=== PATIENT | male | born 1950 | race Caucasian/White ===

== ENCOUNTER 2022-08-03 10:13 | Day surgery (SDC) | payer BC, SELFPAY ==
[2022-07-29 10:07] VITALS: BMI 24.2
--- NOTE | 2022-07-31 08:15 | MHC.SHP ---
Pre-Procedural Eval Section A Date of Service: 07/31/22 The patient is an INPATIENT: No Changes since office visit: No Cold of Flu in the past 2 weeks, No New Medical Problems, No Changes in Medication and No Patient answered all questions The History & Physical has been completed within 30 days and I have reviewed it.: Yes Section B Chief Complaint: Age-related nuclear cataract, left eye Allergies: Allergies Allergy/AdvReac Type Severity Reaction Status Date / Time codeine Allergy Intermediate Nausea and Verified 07/29/22 10:01 Vomiting Plan Diagnosis/Plan: Unchanged I have reviewed the history and physical and performed a pertinent physical examination on my patient. No changes have occurred unless specified. Time Spent With Patient Time: Total time managing care of this patient today ____ minutes.
--- NOTE | 2022-07-31 09:25 | HO.ANESPROP2 ---
HPI - Anesthesia Eval Consult details Narrative: 72yo M for Left Cataract Extraction IOL Insertion PCP cleared No previous cataract PMFSH Past Medical History Medical History (Updated 07/29/22 @ 10:01 by Sheree Rivera RN) Arthritis Elevated cholesterol Essential tremor Renal calculi Surgical History Surgical History (Updated 07/29/22 @ 10:01 by Sheree Rivera RN) H/O colonoscopy Hx of tonsillectomy Social History Social History Are you a primary progressive care unit registered nurse to a significant other at home: No Do you presently have visiting nurse or other home services: No Patient Tobacco Use Status: Former Tobacco user Quit Date: 1986 Tobacco use type: Cigarette Use of substances other than those prescribed or required for medical reasons: No Have you been hit, kicked, punched, or otherwise hurt by someone within the past year? If so, by whom?: No Are you DNR?: No Advance Directives: No ( is primary contact) Advance Directives Information Provided: Yes Advance Directives on File: No Recently lost weight without trying: No Eating poorly because of decreased appetite: No Nutrition Risks: No Nutritional Risk Poor oral hygiene: No Meds Allergies Allergy/AdvReac Type Severity Reaction Status Date / Time codeine Allergy Intermediate Nausea and Verified 07/29/22 10:01 Vomiting Home Medications Medication Instructions Recorded Confirmed Last Taken Type ibuprofen 400 mg tablet 800 mg PO Q6H PRN Pain 07/29/22 07/29/22 Unknown History niacin 1,000 mg tablet,extended 1,000 mg PO BEDTIME 07/29/22 07/29/22 Unknown History release 24 hr pseudoephedrine HCl 60 mg tablet 120 mg PO Q4-6H PRN Congestion 07/29/22 07/29/22 Unknown History topiramate 25 mg tablet 25 mg PO BEDTIME 07/29/22 07/29/22 Unknown History Exam Exam Date and Time: July 31, 2022 0925 Height,Weight and Vital Signs: Height 5 ft 9 in Weight 74.389 kg Assessment and Plan Assessment Anesthesia Assessment: Chart Reviewed
[2022-08-03 10:55] VITALS: BP 187/104; PULSE 64; RESP 16; TEMP 36.7; O2SAT 99
[2022-08-03] MEDS: Lactated Ringers 500 ML 50 ML IV (10:58)
[2022-08-03] MEDS: Tropicamide 1 % Ophth Sol 3 ML BTL 1 DROP EYE-LEFT ×3 (10:58→11:06)
[2022-08-03] MEDS: Tetracaine HCl/PF 0.5% Oph Sol 4 ML DROPS 1 DROP EYE-LEFT (10:58)
[2022-08-03] MEDS: Cyclopentolate 1 % Ophth Sol 2 ML DRPBTL 1 DROP EYE-LEFT ×3 (11:00→11:07)
[2022-08-03] MEDS: Ketorolac Tromethamine 0.5% Op 5 ML DROPS 1 DROP EYE-LEFT ×3 (11:01→11:07)
[2022-08-03] MEDS: Phenylephrine HCL 2.5% Oph SoL 2 ML BOTTLE 1 DROP EYE-LEFT ×3 (11:02→11:08)
--- NOTE | 2022-08-03 12:40 | HO.PNOPHT ---
Ophthalmology Procedure Procedure Date of Service: 08/03/22 Ophthalmology Viscoelastic: Healon Duet Dual Pack Pro Ophthalmology Lenses: TECNIS ZXR00 (16.5) Procedure Notes: PREOPERATIVE DIAGNOSIS: Decreased visual acuity left eye secondary to cataract POSTOPERATIVE DIAGNOSIS: Same PROCEDURE: Left cataract extraction with multifocal intraocular lens insertion SURGEON: Rafael Hurd M.D. ANESTHESIA: Topical/MAC ESTIMATED BLOOD LOSS: None COMPLICATIONS: None After obtaining informed consent, the patient was brought to the operation room suite and placed in the supine position. After adequate sedation per anesthesia, topical drops of Tetracaine were given to the left eye. The eye was then prepped and draped in the usual sterile fashion. The operating room microscope was then positioned over the operative eye and a lid speculum placed. A paracentesis was created. Viscoelastic was then instilled into the anterior chamber. A three plane incision was then created temporally, utilizing a 2.85 mm keratome. Capsulotomy forceps were then utilized to create a circular tear capsulotomy. Hydrodissection and hydrodelineation were carried out until adequate mobilization of the nucleus occurred. Phacoemulsification was then utilized to remove the dense central nucleus followed by removal of the cortical material utilizing the automated aspiration irrigation unit. Viscoelastic was instilled into the posterior capsular bag followed by placement of a multifocal posterior chamber intraocular lens without difficulty. The residual Viscoelastic was then removed utilizing the automated IA machine. The wound was check and found to be watertight. The patient tolerated the procedure well and the lid speculum was removed. Intracameral injection of Vigamox 0.1 mL followed by a subtenon injection of Kenalog-40 0.2 mL were administered. The patient will be seen in the a.m.
[2022-08-03 13:05] VITALS: BP 152/83; PULSE 58; RESP 18; TEMP 36.8; O2SAT 97
== END 2022-08-03 13:17 | disposition home or self-care (01) ==
PROVIDERS: PCP Internal Medicine; Visit Provider Ophthalmology
PROC: (CPT 66984; principal; 2022-08-03 13:10)
DX: H25.12 Age-related nuclear cataract, left eye (principal); H52.4 Presbyopia; Z83.511 Family history of glaucoma; H18.413 Arcus senilis, bilateral; H35.09 Other intraretinal microvascular abnormalities; G25.0 Essential tremor; E78.00 Pure hypercholesterolemia, unspecified; Z79.899 Other long term (current) drug therapy; Z87.891 Personal history of nicotine dependence
CPT/HCPCS: 66984; J2250; J3010; J3301; V2788

== ENCOUNTER 2022-08-17 06:19 | Day surgery (SDC) | payer MEDICARE, SELFPAY ==
[2022-07-29 10:09] VITALS: BMI 24.2
--- NOTE | 2022-08-13 13:12 | MHC.SHP ---
Pre-Procedural Eval Section A Date of Service: 08/13/22 The patient is an INPATIENT: No Changes since office visit: No Cold of Flu in the past 2 weeks, No New Medical Problems, No Changes in Medication and No Patient answered all questions The History & Physical has been completed within 30 days and I have reviewed it.: Yes Section B Chief Complaint: Age-related nuclear cataract, right eye Allergies: Allergies Allergy/AdvReac Type Severity Reaction Status Date / Time codeine Allergy Intermediate Nausea and Verified 07/29/22 10:01 Vomiting Plan Diagnosis/Plan: Unchanged I have reviewed the history and physical and performed a pertinent physical examination on my patient. No changes have occurred unless specified. Time Spent With Patient Time: Total time managing care of this patient today ____ minutes.
--- NOTE | 2022-08-14 09:28 | HO.ANESPROP2 ---
Documented by User: Haley Noriega NP 08/14/22 09:30 HPI - Anesthesia Eval Consult details Narrative: 72yo M for Right Cataract Multifocal with IOL Insertion PCP cleared Left eye 08/03/22 with Fent 50, Midaz 2 PMFSH Past Medical History Medical History Arthritis Elevated cholesterol Essential tremor Renal calculi Surgical History Surgical History H/O colonoscopy Hx of tonsillectomy Social History Social History Are you a primary healthcare recruiter to a significant other at home: No Do you presently have visiting nurse or other home services: No Patient Tobacco Use Status: Former Tobacco user Quit Date: 1986 Tobacco use type: Cigarette Use of substances other than those prescribed or required for medical reasons: No Have you been hit, kicked, punched, or otherwise hurt by someone within the past year? If so, by whom?: No Are you DNR?: No Advance Directives: No ( is primary contact) Advance Directives Information Provided: Yes Advance Directives on File: No Recently lost weight without trying: No Eating poorly because of decreased appetite: No Nutrition Risks: No Nutritional Risk Poor oral hygiene: No Meds Allergies Allergy/AdvReac Type Severity Reaction Status Date / Time codeine Allergy Intermediate Nausea and Verified 08/17/22 06:26 Vomiting Home Medications Medication Instructions Recorded Confirmed Last Taken Type ibuprofen 400 mg tablet 800 mg PO Q6H PRN Pain 07/29/22 07/29/22 Unknown History niacin 1,000 mg tablet,extended 1,000 mg PO BEDTIME 07/29/22 07/29/22 Unknown History release 24 hr pseudoephedrine HCl 60 mg tablet 120 mg PO Q4-6H PRN Congestion 07/29/22 07/29/22 Unknown History topiramate 25 mg tablet 25 mg PO BEDTIME 07/29/22 07/29/22 Unknown History Exam Exam Date and Time: August 14, [id number] Height,Weight and Vital Signs: Height 5 ft 9 in Weight 74.389 kg Assessment and Plan Assessment Anesthesia Assessment: Chart Reviewed Documented by User: Sushant Aragon MD 08/17/22 07:45 [facility] Past Medical History Medical History Arthritis Elevated cholesterol Essential tremor Renal calculi Family History Family history of problems with anesthesia: No Surgical History Surgical History H/O colonoscopy Hx of tonsillectomy History of Problems with Anesthesia: No Social History Social History Are you a primary healthcare recruiter to a significant other at home: No Do you presently have visiting nurse or other home services: No Patient Tobacco Use Status: Former Tobacco user Quit Date: 1986 Tobacco use type: Cigarette Use of substances other than those prescribed or required for medical reasons: No Have you been hit, kicked, punched, or otherwise hurt by someone within the past year? If so, by whom?: No Are you DNR?: No Advance Directives: No ( is primary contact) Advance Directives Information Provided: Yes Advance Directives on File: No Recently lost weight without trying: No Eating poorly because of decreased appetite: No Nutrition Risks: No Nutritional Risk Poor oral hygiene: No Meds Allergies Allergy/AdvReac Type Severity Reaction Status Date / Time codeine Allergy Intermediate Nausea and Verified 08/17/22 06:26 Vomiting Home Medications Medication Instructions Recorded Confirmed Last Taken Type ibuprofen 400 mg tablet 800 mg PO Q6H PRN Pain 07/29/22 07/29/22 Unknown History niacin 1,000 mg tablet,extended 1,000 mg PO BEDTIME 07/29/22 07/29/22 Unknown History release 24 hr pseudoephedrine HCl 60 mg tablet 120 mg PO Q4-6H PRN Congestion 07/29/22 07/29/22 Unknown History topiramate 25 mg tablet 25 mg PO BEDTIME 07/29/22 07/29/22 Unknown History Exam Airway Mallampati Class: II TM Dist: >3cm Neck ROM: Full Loose/Missing/Broken Teeth: Yes Heart: [id number] Lungs: cta b/l Assessment and Plan Assessment Anesthesia Assessment: Anesthesia Plan Discussed Final Anesthetic Review Family History of Problems with Anesthesia: No History of Problems with Anesthesia: No NPO: Yes ASA Class: II Final Preanesthetic Review: No Changes in Pt Med Stat, Meds/Allgs Chart Reviewed, Consent Obtained/Reviewed and Anes Risks/Benef Reviewed Patient Risk: Low Procedure Risk: Low Assessment/Block/Sedation in SS: Assess/Block/Sedation-SS Anesthetic Plan Anesthetic Plan: MAC: and Agree w/ Assess. and Plan Disposition: Standard PACU
[2022-08-17 06:30] VITALS: BP 151/82; PULSE 58; RESP 16; TEMP 37; O2SAT 96
[2022-08-17] MEDS: Tetracaine HCl/PF 0.5% Oph Sol 4 ML DROPS 1 DROP EYE-RIGHT (06:35)
[2022-08-17] MEDS: Cyclopentolate 1 % Ophth Sol 2 ML DRPBTL 1 DROP EYE-RIGHT ×3 (06:38→06:48)
[2022-08-17] MEDS: Tropicamide 1 % Ophth Sol 3 ML BTL 1 DROP EYE-RIGHT ×3 (06:39→06:49)
[2022-08-17] MEDS: Ketorolac Tromethamine 0.5% Op 5 ML DROPS 1 DROP EYE-RIGHT ×3 (06:41→06:50)
[2022-08-17] MEDS: Phenylephrine HCL 2.5% Oph SoL 2 ML BOTTLE 1 DROP EYE-RIGHT ×3 (06:42→06:51)
[2022-08-17] MEDS: Lactated Ringers 500 ML 50 ML IV (06:49)
[2022-08-17 07:58] VITALS: BP 132/64; PULSE 52; RESP 18; TEMP 36.6; O2SAT 98
--- NOTE | 2022-08-17 08:00 | P.PCNO_ITS ---
Ophthalmology Procedure Procedure Date of Service: 08/17/22 Ophthalmology Viscoelastic: Healon Duet Dual Pack Pro Ophthalmology Lenses: TECNIS ZXR00 (15.5) Procedure Notes: PREOPERATIVE DIAGNOSIS: Decreased visual acuity right eye secondary to cataract POSTOPERATIVE DIAGNOSIS: Same PROCEDURE: Right cataract extraction with multifocal intraocular lens insertion SURGEON: Rafael Hurd M.D. ANESTHESIA: Topical/MAC ESTIMATED BLOOD LOSS: None COMPLICATIONS: None After obtaining informed consent, the patient was brought to the operating room suite and placed in the supine position. After adequate sedation per anesthesia, topical drops of Tetracaine were given to the right eye. The eye was then prepped and draped in the usual sterile fashion. The operating room microscope was then positioned over the operative eye and a lid speculum placed. A paracentesis was created. Viscoelastic was then instilled into the anterior chamber. A three plane incision was then created temporally, utilizing a 2.85 mm keratome. Capsulotomy forceps were then utilized to create a circular tear capsulotomy. Hydrodissection and hydrodelineation were carried out until adequate mobilization of the nucleus occurred. Phacoemulsification was then utilized to remove the dense central nu cleus followed by removal of the cortical material utilizing the automated aspiration irrigation unit. Viscoelastic was instilled into the posterior capsular bag followed by placement of a multifocal posterior chamber intraocular lens without difficulty. The residual Viscoelastic was then removed utilizing the automated IA machine. The wound was checked and found to be watertight. The patient tolerated the procedure well and the lid speculum was removed. Intracameral injection of Vigamox 0.1 mL followed by a subtenon injection of Kenalog-40 0.2 mL were administered. The patient will be seen in the a.m.
== END 2022-08-17 08:12 | disposition home or self-care (01) ==
PROVIDERS: PCP Internal Medicine; Visit Provider Ophthalmology
PROC: (CPT 66984; principal; 2022-08-17 07:30)
DX: H25.11 Age-related nuclear cataract, right eye (principal); H52.4 Presbyopia; Z83.511 Family history of glaucoma; H35.09 Other intraretinal microvascular abnormalities; H18.413 Arcus senilis, bilateral; Z97.3 Presence of spectacles and contact lenses; R25.1 Tremor, unspecified; E78.00 Pure hypercholesterolemia, unspecified; N20.0 Calculus of kidney; Z79.899 Other long term (current) drug therapy; Z79.1 Long term (current) use of non-steroidal anti-inflammatories (NSAID); Z87.891 Personal history of nicotine dependence
CPT/HCPCS: 66984; J2250; J3010; J3301; V2788